=== PATIENT | female | born 1995 | race Two or more races ===

== ENCOUNTER 2020-08-06 12:55 | Outpatient (CLI) | payer MEDICAID ==
[~2020-08-06] VITALS: Ht 170.2 cm; Wt 102.1 kg
== END 2020-08-06 13:05 | disposition home or self-care (01) ==
LOC: UNDOADMOB 12:55 → LDRP 12:55 → OB 12:55 → UNDODISOB 13:05 → OB 13:05 → EDSTATUS 08-11 09:49
PROVIDERS: ATTEND Obstetrics & Gynecology
DX: Z20.822 Contact with and (suspected) exposure to COVID-19 (principal)
CPT/HCPCS: G0378

== ENCOUNTER 2020-08-08 05:23 | Inpatient (IN) | payer MEDICAID ==
[2020-08-08] VITALS (18 sets, daily range): BP systolic 114–135; BP diastolic 53–94
[~2020-08-08] VITALS: Ht 0 cm
[2020-08-08] MEDS ORDERED: ceFAZolin 1GM/50ML 50 ML IV ONE (05:45)
[2020-08-08 06:08] LABS: Basophils # (auto) 0 10 ^3/uL (0-0.2); Basophils % (auto) 0.5 % (0.0-2.0); Eosinophils # (auto) 0.1 10 ^3/uL (0-0.8); Eosinophils % (auto) 1.5 % (0.0-7.0); Hematocrit 33.5 % (36.0-46.0); Hemoglobin 11.6 g/dL (12.2-16.2); Lymphocytes % (auto) 31.5 % (10.0-50.0); Mean Corpuscular Hemoglobin 32.8 pg (28.0-32.0); Mean Corpuscular Hgb Conc. 34.5 g/dL (32.0-36.0); Mean Corpuscular Volume 95.1 fL (80.0-100.0); Monocytes # (auto) 0.4 10 ^3/uL (0-1.3); Monocytes % (auto) 6.1 % (0.0-12.0); Neutrophils # (auto) 3.9 10 ^3/uL (1.6-8.6); Neutrophils % (auto) 60.4 % (37.0-80.0); Nucleated Red Blood Cells % 0.1 %; Platelet Count (auto) 262 10^3/uL (140-450); Red Blood Cells 3.52 10^6/uL (4.0-5.20); Red Cell Distribution Width 13.2 % (11.8-14.3); White Blood Cell 6.5 10^3/uL (4.4-10.8)
[2020-08-08 06:22] LABS: Urine Bacteria FEW /hpf (None Seen); Urine Blood Negative /uL (Negative); Urine Mucus FEW (None Seen); Urine Specific Gravity 1.021 (1.001-1.035); Urine WBC 1 /hpf (0 - 5)
[2020-08-08 06:23] LABS: Albumin 2.9 g/dL (3.4-5.0); BUN/Creatinine Ratio 11.3; Calcium 8.9 mg/dL (8.5-10.1); Potassium 3.7 mmol/L (3.5-5.1)
[2020-08-08 06:25] LABS: Bilirubin, Total 0.6 mg/dL (0.2-1.0); Total Protein 6.9 g/dL (6.4-8.2)
[2020-08-08 06:26] LABS: INR 0.92 (0.9-1.15); Partial Thromboplastin Time 25.6 sec (23.0-31.2)
[2020-08-08] MEDS: LACTATED RINGER'S 1,000 ML IV SCH ×3 (06:30→22:00)
[2020-08-08 06:42] LABS: Alcohol, Urine < 3.0 mg/dL (0-10); Amphetamine Screen, Urine NEGATIVE (NEGATIVE); Barbiturate Scree,Urine NEGATIVE (NEGATIVE); Benzodiazephine Screen, Urine NEGATIVE (NEGATIVE); Cannabinoid Screen, Urine NEGATIVE (NEGATIVE); Cocaine Screen, Urine NEGATIVE (NEGATIVE); Opiate Scree,Urine NEGATIVE (NEGATIVE); Phencyclidine Screen, Urine NEGATIVE (NEGATIVE)
[2020-08-08] MEDS ORDERED: TETRACAINE 1% INJ 2 ML VIAL IJ ONE (08:11)
[2020-08-08] MEDS ORDERED: MIDAZOLAM HCL 1MG/1ML-2 ML VIAL ONE (08:12)
[2020-08-08] MEDS ORDERED: MORPHINE SULF(PF) 0.5MG/ML 10ML VIAL ONE (08:12)
[2020-08-08] MEDS ORDERED: fentaNYL CITRATE 100 MCG/2 ML VL ONE (08:12)
[2020-08-08] MEDS ORDERED: PHENYLEPHRINE HCL 10 MG/ML VL IV ONE (08:15)
[2020-08-08] MEDS ORDERED: oxyTOCIN 10 UNIT/ML 10ML VIAL ONE (08:44)
[2020-08-08] MEDS ORDERED: GUM (CHEWING) 1 GUM CHEW CHEW ONE (09:15)
[2020-08-08] MEDS ORDERED: ONDANSETRON HCL 4 MG/2 ML VIAL IV PRN (09:15)
[2020-08-08] MEDS ORDERED: LACT. RINGERS/OXYTOCIN 20UNITS 1,000 ML IV ONE (09:15)
[2020-08-08] MEDS ORDERED: ceFAZolin 1GM/50ML 50 ML IV SCH (09:15)
[2020-08-08] MEDS: MORPHINE SULF INJ 2 MG/ML SYRINGE 1ML IV PRN (12:24)
[2020-08-08] MEDS ORDERED: ACETAMINOPHEN IV 1000 MG/100ML (10MG/ML) IV PRN (13:00)
[2020-08-08] MEDS: ceFAZolin 1GM/50ML 50 ML IV SCH (16:59)
[2020-08-08] MEDS ORDERED: diphenhdrAMINE HCL 50 MG/1 ML VL IV ONE (17:00)
[2020-08-08 21:18] LABS: Basophils # (auto) 0 10 ^3/uL (0-0.2); Basophils % (auto) 0.5 % (0.0-2.0); Eosinophils # (auto) 0.1 10 ^3/uL (0-0.8); Eosinophils % (auto) 1.1 % (0.0-7.0); Hematocrit 33.2 % (36.0-46.0); Hemoglobin 11.4 g/dL (12.2-16.2); Lymphocytes # (auto) 2.1 10 ^3/uL (0.4-5.4); Mean Corpuscular Hemoglobin 32.8 pg (28.0-32.0); Mean Corpuscular Hgb Conc. 34.3 g/dL (32.0-36.0); Mean Corpuscular Volume 95.6 fL (80.0-100.0); Monocytes # (auto) 0.5 10 ^3/uL (0-1.3); Neutrophils # (auto) 4.8 10 ^3/uL (1.6-8.6); Neutrophils % (auto) 64.4 % (37.0-80.0); Nucleated Red Blood Cells % 0.1 %; Platelet Count (auto) 239 10^3/uL (140-450); Red Blood Cells 3.47 10^6/uL (4.0-5.20); Red Cell Distribution Width 12.9 % (11.8-14.3); White Blood Cell 7.5 10^3/uL (4.4-10.8)
[2020-08-09] VITALS (10 sets, daily range): BP systolic 117–138; BP diastolic 66–91
[2020-08-09] MEDS: ceFAZolin 1GM/50ML 50 ML IV SCH ×2 (00:10→08:53)
[2020-08-09] MEDS ORDERED: HYDROcodone-ACET 5/325MG TAB PO PRN (05:15)
[2020-08-09] MEDS: MORPHINE SULF INJ 2 MG/ML SYRINGE 1ML IV PRN (05:42)
[2020-08-09] MEDS: LACTATED RINGER'S 1,000 ML IV SCH ×2 (06:15→15:00)
[2020-08-09 07:40] LABS: Basophils # (auto) 0 10 ^3/uL (0-0.2); Basophils % (auto) 0.3 % (0.0-2.0); Eosinophils # (auto) 0.1 10 ^3/uL (0-0.8); Eosinophils % (auto) 1.2 % (0.0-7.0); Hematocrit 31.9 % (36.0-46.0); Hemoglobin 10.8 g/dL (12.2-16.2); Lymphocytes # (auto) 1.6 10 ^3/uL (0.4-5.4); Lymphocytes % (auto) 24.5 % (10.0-50.0); Mean Corpuscular Hemoglobin 32.4 pg (28.0-32.0); Mean Corpuscular Hgb Conc. 33.7 g/dL (32.0-36.0); Mean Corpuscular Volume 95.9 fL (80.0-100.0); Monocytes # (auto) 0.5 10 ^3/uL (0-1.3); Monocytes % (auto) 7.2 % (0.0-12.0); Neutrophils # (auto) 4.3 10 ^3/uL (1.6-8.6); Neutrophils % (auto) 66.8 % (37.0-80.0); Nucleated Red Blood Cells % 0.1 %; Platelet Count (auto) 227 10^3/uL (140-450); Red Blood Cells 3.32 10^6/uL (4.0-5.20); Red Cell Distribution Width 12.8 % (11.8-14.3); White Blood Cell 6.4 10^3/uL (4.4-10.8)
[2020-08-09] MEDS: DOCUSATE CALCIUM 240 MG CAP PO SCH (08:53)
[2020-08-09] MEDS: FERROUS SULFATE 325 MG TAB PO SCH ×2 (08:53→22:04)
[2020-08-09] MEDS: SIMETHICONE 80 MG CHEWABLE TABLET PO SCH ×4 (08:54→22:04)
[2020-08-09] MEDS: HYDROcodone-ACET 5/325MG TAB PO PRN ×3 (09:37→22:06)
[2020-08-09] MEDS: IBUPROFEN 800 MG TAB PO PRN (20:38)
[2020-08-10] VITALS (7 sets, daily range): BP systolic 125–136; BP diastolic 64–82
[2020-08-10] MEDS: HYDROcodone-ACET 5/325MG TAB PO PRN (03:58)
[2020-08-10 05:06] LABS: RPR Non Reactive (Non Reactive)
[2020-08-10] MEDS: IBUPROFEN 800 MG TAB PO PRN ×3 (05:58→23:50)
[2020-08-10] MEDS: SIMETHICONE 80 MG CHEWABLE TABLET PO SCH ×4 (05:58→22:00)
[2020-08-10] MEDS: DOCUSATE CALCIUM 240 MG CAP PO SCH (09:32)
[2020-08-10] MEDS: FERROUS SULFATE 325 MG TAB PO SCH ×2 (09:32→21:37)
[2020-08-11 03:00] VITALS: BP 119/69
[2020-08-11] MEDS: HYDROcodone-ACET 5/325MG TAB PO PRN (03:26)
[2020-08-11] MEDS: SIMETHICONE 80 MG CHEWABLE TABLET PO SCH (06:00)
[2020-08-11 06:45] VITALS: BP 134/86
[2020-08-11] MEDS ORDERED: PREN-96 PO (07:05)
[2020-08-11] MEDS: IBUPROFEN 800 MG TAB PO PRN (08:35)
== END 2020-08-11 08:56 | disposition home or self-care (01) | DRG 540 ==
LOC: LDRP 05:23
PROVIDERS: ADMIT Obstetrics & Gynecology; ATTEND Obstetrics & Gynecology
PROC: 10D00Z1 Extraction of Products of Conception, Low, Open Approach (ICD-10-PCS; principal; 2020-08-08 08:12)
DX: O34.219 Maternal care for unspecified type scar from previous cesarean delivery (principal); Z37.0 Single live birth; Z3A.39 39 weeks gestation of pregnancy; O99.214 Obesity complicating childbirth; O99.02 Anemia complicating childbirth; E66.9 Obesity, unspecified; D64.9 Anemia, unspecified
CPT/HCPCS: 36415; 59025; 80053; 80307; 81001; 81002; 85025; 85610; 85730; 86592; 86850; 86900; 86901; 94762; 96360; 96361; G0378; J0690; J2250; J2405; J2590